=== PATIENT | male | born 1960 | race Caucasian/White ===

== ENCOUNTER → 2017-01-24 | Outpatient (CLI) | payer OTHER ==
[~2017-01-24] MED LIST: /ATOR40TA; ACET65TA; ADV500INH INH; ALBU17IN INH; AMLO5TAB2 PO; ASPI81TA85 PO; ATOR1TAB21 PO; BENT10CA PO; BREO1INH INH; ECOT325T5; IRBE300T12 PO; LIMBREL; LOSA100T36 PO; PROT1TAB2 PO; SALI0.653
[2017-01-24 08:55] LABS: MEAN CORPUSCULAR HEMOGLOBIN 31.7 pg (27.0-33.0); MEAN CORPUSCULAR HGB CONC 33.3 g/dl (32.0-36.5); MEAN CORPUSCULAR VOLUME 95.1 fl (80.0-96.0); RED CELL DISTRIBUTION WIDTH 12.2 % (11.5-14.5); WHITE BLOOD COUNT 7.4 K/mm3 (4.0-10.0)
[2017-01-24 09:24] LABS: INR 0.88
[2017-01-24 09:40] LABS: ALBUMIN 3.8 GM/DL (3.2-5.2); ALBUMIN/GLOBULIN RATIO 1.31 (1.00-1.93); ALKALINE PHOSPHATASE 84 U/L (45-117); ALT/SGPT 41 U/L (12-78); ANION GAP 7 MEQ/L (8-16); AST/SGOT 20 U/L (15-37); BILIRUBIN,TOTAL 0.6 MG/DL (0.2-1.0); BLOOD UREA NITROGEN 13 MG/DL (7-18); CALCIUM LEVEL 9.1 MG/DL (8.5-10.1); CARBON DIOXIDE LEVEL 29 MEQ/L (21-32); CHLORIDE LEVEL 100 MEQ/L (98-107); CHOLESTEROL LEVEL 199 MG/DL (<200); CREATININE FOR GFR 0.75 MG/DL (0.70-1.30); GLOMERULAR FILTRATION RATE > 60.0 (>56); GLUCOSE, FASTING 107 MG/DL (70-105); POTASSIUM SERUM 4.7 MEQ/L (3.5-5.1); SODIUM LEVEL 136 MEQ/L (136-145); TOTAL PROTEIN 6.7 GM/DL (6.4-8.2); TRIGLYCERIDES LEVEL 61 MG/DL (<150)
--- NOTE | 2017-01-24 13:03 | REP ---
Chest x-ray: Two views. History: COPD. Comparison chest x-ray July 10, 2016. Findings: The lungs are symmetrically aerated and clear. Heart is not enlarged. Pleural angles are sharp. Pulmonary vasculature is not increased. Impression: No active disease. Signed by Alexis Sotomayor MD 01/24/2017 01:25 P
--- NOTE | 2017-01-25 12:50 | ECGEPIP ---
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
== END ==
LOC: M LAB 08:15
PROVIDERS: ATTEND Family Medicine
DX: Z01.818 Encounter for other preprocedural examination (principal); I10 Essential (primary) hypertension; J44.9 Chronic obstructive pulmonary disease, unspecified

== ENCOUNTER → 2017-02-03 | Outpatient (CLI) | payer OTHER ==
[~2017-02-03] VITALS: Ht 182.9 cm; Wt 78.9 kg
[~2017-02-03] MED LIST changes: +LR 1,000 ML IV SCH
[2017-02-03 09:49] VITALS: BP 155/81
== END ==
LOC: EDSTATUS 07:30 → M SDC 09:01
PROVIDERS: ATTEND Otolaryngology
DX: Z53.09 Procedure and treatment not carried out because of other contraindication (principal); J34.2 Deviated nasal septum; J32.4 Chronic pansinusitis

== ENCOUNTER → 2017-05-05 | Outpatient (CLI) | payer OTHER ==
[~2017-05-05] MED LIST changes: -LR 1,000 ML IV SCH; +SALI0.6523; -SALI0.653
--- NOTE | 2017-05-06 03:47 | REP ---
Clinical: Lung screening. History of emphysema. Comparison: 12/19/2014 Technique: Axial low-dose noncontrast images from the thoracic inlet to the upper abdomen using lung screening technique. Findings: The lung rich again demonstrate stable, mild emphysematous changes including biapical scarring and few medial, subpleural bullae. The biapical scarring as well as a noncalcified pleural plaque along the posterior right upper lung zone remains unchanged. No consolidation, significant nodule or mass lesion is appreciated. No pleural effusion/reaction or pneumothorax. Tracheobronchial tree is patent. Mediastinum demonstrates moderate atherosclerotic changes of the coronary arteries without cardiomegaly. Impression: Lung-RADS category I-S. No nodule or suspicious abnormality. Signed by Valentin Deal MD 05/06/2017 03:38 A
== END ==
LOC: M RAD 11:02
PROVIDERS: ATTEND Internal Medicine Pulmonary Disease
DX: J43.2 Centrilobular emphysema (principal)

== ENCOUNTER → 2017-08-27 | Outpatient (CLI) | payer OTHER ==
[2017-08-27 12:57] LABS: MEAN CORPUSCULAR HEMOGLOBIN 33.8 pg (27.0-33.0); MEAN CORPUSCULAR HGB CONC 33.9 g/dl (32.0-36.5); MEAN CORPUSCULAR VOLUME 99.6 fl (80.0-96.0); PLATELET COUNT, AUTOMATED 245 10^3/uL (150-450); WHITE BLOOD COUNT 6.7 10^3/uL (4.0-10.0)
[2017-08-27 13:05] LABS: ALBUMIN/GLOBULIN RATIO 1.18 (1.00-1.93); ALKALINE PHOSPHATASE 93 U/L (45-117); ALT/SGPT 34 U/L (12-78); ANION GAP 7 MEQ/L (8-16); AST/SGOT 22 U/L (7-37); BILIRUBIN,TOTAL 1.3 MG/DL (0.2-1.0); BLOOD UREA NITROGEN 10 MG/DL (7-18); CARBON DIOXIDE LEVEL 30 MEQ/L (21-32); CHLORIDE LEVEL 98 MEQ/L (98-107); CHOLESTEROL LEVEL 189 MG/DL (<200); CREATININE FOR GFR 0.76 MG/DL (0.70-1.30); GLOMERULAR FILTRATION RATE > 60.0 (>56); GLUCOSE, FASTING 91 MG/DL (70-105); POTASSIUM SERUM 4.3 MEQ/L (3.5-5.1); SODIUM LEVEL 135 MEQ/L (136-145); TOTAL PROTEIN 7.4 GM/DL (6.4-8.2); TRIGLYCERIDES LEVEL 73 MG/DL (<150)
== END ==
LOC: M SMT 10:53
PROVIDERS: ATTEND Internal Medicine Cardiovascular Disease
DX: R07.9 Chest pain, unspecified (principal); I10 Essential (primary) hypertension; E78.5 Hyperlipidemia, unspecified

== ENCOUNTER → 2018-02-24 | Outpatient (CLI) | payer OTHER | LOC: M SMT 08:18 | DX: M25.551 Pain in right hip (principal) | CPT/HCPCS: 73502 ==

== ENCOUNTER → 2018-05-18 | Outpatient (CLI) | payer OTHER | LOC: M RAD 07:51 | DX: Z12.2 Encounter for screening for malignant neoplasm of respiratory organs (principal); F17.218 Nicotine dependence, cigarettes, with other nicotine-induced disorders | CPT/HCPCS: G0297 ==

== ENCOUNTER → 2018-10-01 | Outpatient (CLI) | payer OTHER ==
[~2018-10-01] MED LIST changes: -AMLO5TAB2 PO; +AMLO5TAB4 PO; +BISO5TAB5 PO; +CLOP75TA2 PO; +DICY10CA13 PO; +HYDR12.55 PO; +LISI2.5T5 PO; +LOSA-4 PO; -LOSA100T36 PO; +NITR0.4S14 SL; -SALI0.6523; +SALI0.6528; +VENTAER IN
[2018-10-01 09:03] LABS: HEMOGLOBIN 9.2 g/dl (13.5-17.5); MEAN CORPUSCULAR HEMOGLOBIN 28.9 pg (27.0-33.0); MEAN CORPUSCULAR HGB CONC 31.7 g/dl (32.0-36.5); MEAN CORPUSCULAR VOLUME 91.2 fl (80.0-96.0); PLATELET COUNT, AUTOMATED 345 10^3/uL (150-450); RED BLOOD COUNT 3.18 10^6/uL (4.30-6.10); WHITE BLOOD COUNT 5.7 10^3/uL (4.0-10.0)
[2018-10-01 09:22] LABS: INR 0.94; PROTHROMBIN TIME 12.7 SECONDS (12.1-14.4)
[2018-10-01 09:32] LABS: ALBUMIN 3.9 GM/DL (3.2-5.2); ALT/SGPT 21 U/L (12-78); BILIRUBIN,TOTAL 0.5 MG/DL (0.2-1.0); BLOOD UREA NITROGEN 12 MG/DL (7-18); CALCIUM LEVEL 8.9 MG/DL (8.8-10.2); CARBON DIOXIDE LEVEL 28 MEQ/L (21-32); CHLORIDE LEVEL 102 MEQ/L (98-107); CHOLESTEROL LEVEL 158 MG/DL (<200); CHOLESTEROL RISK RATIO 2.164 (<5); CREATININE FOR GFR 0.87 MG/DL (0.70-1.30); GLOMERULAR FILTRATION RATE > 60.0 (>49); GLUCOSE, FASTING 96 MG/DL (70-100); HDL CHOLESTEROL 73 MG/DL (>40); LDL CHOLESTEROL 72 MG/DL (<100); NON-HDL-C 85 MG/DL; POTASSIUM SERUM 4.3 MEQ/L (3.5-5.1); PROSTATIC SPECIFIC AG MONITOR 1.77 NG/ML (< 4.00); SODIUM LEVEL 137 MEQ/L (136-145); TOTAL PROTEIN 6.8 GM/DL (6.4-8.2); TRIGLYCERIDES LEVEL 64 MG/DL (<150)
--- NOTE | 2018-10-02 02:01 | REP ---
Clinical: Hypertension and history of COPD. Preoperative testing. Comparison: 07/10/2016, 01/24/2017 . Technique: PA and lateral. Findings: The mediastinum and cardiac silhouette are normal. The lung rich demonstrate changes related to COPD without acute consolidation, effusion, or pneumothorax. The skeletal structures are intact and normal. Impression: 1. Changes related to COPD. 2. No obvious acute cardiopulmonary process appreciated. Electronically Signed by Valentin Deal MD 10/02/2018 01:53 A
== END ==
LOC: M LAB 08:32
PROVIDERS: ATTEND Family Medicine
DX: Z01.818 Encounter for other preprocedural examination (principal); I10 Essential (primary) hypertension; J44.9 Chronic obstructive pulmonary disease, unspecified

== ENCOUNTER → 2018-11-02 | Outpatient (CLI) | payer OTHER ==
[~2018-11-02] MED LIST changes: -AMLO5TAB4 PO; +AMLO5TAB6 PO; +E-Z-GAS II EFFERVESCENT PACKET (SODIUM BICARB./CITRIC ACID/SIMETHICONE) As Ordered ONE; +E-Z-HD 98% w/w 340GM SUSP BTL As Ordered ONE; +E-Z-PAQUE 96% w/w SUSP 176GM BTL As Ordered ONE; -LOSA-4 PO; +LOSA100T50 PO
--- NOTE | 2018-11-02 12:29 | REP ---
Upper GI series: Single contrast study. History: Anemia, GI bleeding. Findings: Preliminary drone operator view of the abdomen is unremarkable. The thoracic esophagus is normal in coarse, caliber and peristalsis. Reflux was not witnessed. Gastric rugal folds are somewhat thickened question gastritis. No gastric mass or ulcer is seen. Duodenal bulb was fully distensible and clear. C-loop is not widened. Remainder the visualized small bowel is unremarkable. Fluoroscopy time with this examination was 0.3 minutes. Impression: Somewhat thickened gastric folds question gastritis. Otherwise negative. Electronically Signed by Alexis Sotomayor MD 11/02/2018 01:21 P
== END ==
LOC: M RAD 09:46
PROVIDERS: ATTEND Family Medicine
DX: D64.9 Anemia, unspecified (principal)

== ENCOUNTER → 2018-12-01 | Outpatient (CLI) | payer OTHER ==
[~2018-12-01] MED LIST changes: -E-Z-GAS II EFFERVESCENT PACKET (SODIUM BICARB./CITRIC ACID/SIMETHICONE) As Ordered ONE; -E-Z-HD 98% w/w 340GM SUSP BTL As Ordered ONE; -E-Z-PAQUE 96% w/w SUSP 176GM BTL As Ordered ONE; +SUCR1TAB56 PO
[2018-12-01 19:20] LABS: BASO # 0.1 10^3/uL (0.0-0.2); EOS # 0.4 10^3/uL (0.0-0.50); EOS % 5.3 % (0.0-3.0); HEMATOCRIT 27.7 % (42.0-52.0); HEMOGLOBIN 8.5 g/dl (13.5-17.5); LYMPH % 28.7 % (24.0-44.0); MEAN CORPUSCULAR HEMOGLOBIN 23.8 pg (27.0-33.0); MEAN CORPUSCULAR HGB CONC 30.7 g/dl (32.0-36.5); MEAN CORPUSCULAR VOLUME 77.6 fl (80.0-96.0); MONO # 0.9 10^3/uL (0.0-0.8); MONO % 12.9 % (0.0-5.0); NEUTROPHILS # 3.6 10^3/uL (1.8-7.7); NEUTROPHILS % 51.8 % (36.0-66.0); PLATELET COUNT, AUTOMATED 428 10^3/uL (150-450); RED BLOOD COUNT 3.57 10^6/uL (4.30-6.10)
== END ==
LOC: M SMT 13:12
PROVIDERS: ATTEND Internal Medicine Gastroenterology
DX: D64.9 Anemia, unspecified (principal)

== ENCOUNTER 2018-12-07 06:59 | Day surgery (SDC) | payer OTHER ==
[~2018-12-07] VITALS: Ht 177.8 cm; Wt 77.6 kg
[2018-12-07] MEDS ORDERED: NS 1,000 ML IV ONE (07:00)
[2018-12-07] MEDS ORDERED: PROPOFOL 200 MG/20 ML VIAL As Ordered ONE (07:12)
[2018-12-07] MEDS ORDERED: LIDOCAINE 2% INJ 100 MG/5 ML SDV (FOR ANES.) As Ordered ONE (07:12)
--- NOTE | 2018-12-07 10:00 | ROOR ---
Patient Name: Ashwin Villa Procedure Date: 12/07/2018 9:36 AM Date of : 1960 Age: 58 Room: [facility] Gender: Male Note Status: Finalized Procedure: Upper Endoscopy + Biopsies Indications: Iron deficiency anemia, Abnormal UGI series Providers: Dereje Dorman MD Referring MD: SHAVON DANIEL MD Requesting Provider: Medicines: Monitored Anesthesia Care Complications: No immediate complications. Procedure: Pre-Anesthesia Assessment: - The heart rate, respiratory rate, oxygen saturations, blood pressure, adequacy of pulmonary ventilation, and response to care were monitored throughout the procedure. The Endoscope was introduced through the mouth, and advanced to the second part of duodenum. The upper GI endoscopy was accomplished without difficulty. The patient tolerated the procedure well. Findings: The Z-line was irregular and was found 40 cm from the incisors. Multiple biopsies were obtained with cold forceps for evaluation to rule out Senior's Esophagus randomly at the gastroesophageal junction. A small hiatal hernia was present. No other significant abnormalities were identified in a careful examination of the stomach. The exam of the duodenum was otherwise normal. Impression: - Z-line irregular, 40 cm from the incisors. - Small hiatal hernia. - Multiple biopsies were obtained at the gastroesophageal junction. - The examination was otherwise normal. Recommendation: - Patient has a contact number available for emergencies. The signs and symptoms of potential delayed complications were discussed with the patient. Return to normal activities tomorrow. Written discharge instructions were provided to the patient. - High fiber diet. - Discharge patient to home. - Continue present medications. - Await pathology results. - Telephone GI clinic for pathology results in 1 week. - Return to referring physician. - The findings and recommendations were discussed with the patient's family. Dereje Dorman MD Dereje Dorman MD 12/07/2018 10:00:25 AM This report has been signed electronically. Number of Addenda: 0 Note Initiated On: 12/07/2018 9:36 AM Estimated Blood Loss: Estimated blood loss: none.
[2018-12-07 10:15] VITALS: BP 147/75
== END 2018-12-07 10:25 | disposition home or self-care (01) ==
LOC: M OPP 06:59
PROVIDERS: ATTEND Internal Medicine Gastroenterology
DX: D50.9 Iron deficiency anemia, unspecified (principal); K22.8 Other specified diseases of esophagus; K44.9 Diaphragmatic hernia without obstruction or gangrene; R93.3 Abnormal findings on diagnostic imaging of other parts of digestive tract; Z79.82 Long term (current) use of aspirin; Z79.899 Other long term (current) drug therapy; F17.210 Nicotine dependence, cigarettes, uncomplicated; Z95.5 Presence of coronary angioplasty implant and graft; Z86.73 Personal history of transient ischemic attack (TIA), and cerebral infarction without residual deficits

== ENCOUNTER → 2018-12-15 | Outpatient (REF) ==
--- NOTE | 2018-12-16 02:48 | REP ---
Clinical: Pain and disability. Technique: AP, lateral, open-mouth, and swimmer's views of the cervical spine. Findings: Straightening of normal lordosis is appreciated along with advanced degenerative disc osteophyte complex at C5-6 and C6-7 including endplate sclerosis/heterogeneity, disc space narrowing, and osteophytosis. Moderate disc space narrowing at C4-5 noted with minimal endplate sclerosis. No acute fracture / compression injury or subluxation. Spinous processes are intact. Impression: Moderate to advanced degenerative changes from C4-5 through C6-7. Electronically Signed by Valentin Deal MD 12/16/2018 02:40 A
== END ==
LOC: M SMT 12:58
PROVIDERS: ATTEND Internal Medicine
DX: Z02.89 Encounter for other administrative examinations (principal)

== ENCOUNTER → 2018-12-15 | Outpatient (CLI) | payer OTHER ==
[2018-12-15 18:27] LABS: HEMATOCRIT 29.5 % (42.0-52.0); HEMOGLOBIN 8.9 g/dl (13.5-17.5); MEAN CORPUSCULAR HEMOGLOBIN 22.9 pg (27.0-33.0); MEAN CORPUSCULAR HGB CONC 30.2 g/dl (32.0-36.5); MEAN CORPUSCULAR VOLUME 75.8 fl (80.0-96.0); PLATELET COUNT, AUTOMATED 446 10^3/uL (150-450); RED BLOOD COUNT 3.89 10^6/uL (4.30-6.10); WHITE BLOOD COUNT 7.6 10^3/uL (4.0-10.0)
== END ==
LOC: M SMT 12:56
PROVIDERS: ATTEND Family Medicine
DX: D64.9 Anemia, unspecified (principal); K92.2 Gastrointestinal hemorrhage, unspecified

== ENCOUNTER 2019-01-11 11:29 | Day surgery (SDC) | payer OTHER ==
[~2019-01-11] VITALS: Ht 177.8 cm; Wt 75.7 kg
[~2019-01-11 11:29] MED LIST changes: -/ATOR40TA; +IRON1TAB PO; +LIDOCAINE 2% INJ 100 MG/5 ML SDV (FOR ANES.) As Ordered ONE; +LIPI1TAB2; +LISI-1046 PO; -LISI2.5T5 PO; +NS 1,000 ML IV ONE; +PROPOFOL 200 MG/20 ML VIAL As Ordered ONE
[2019-01-11] MEDS ORDERED: PROPOFOL 200 MG/20 ML VIAL As Ordered ONE (13:39)
--- NOTE | 2019-01-11 14:00 | ROOR ---
Patient Name: Ashwin Villa Procedure Date: 01/11/2019 1:26 PM Date of : 1960 Age: 58 Room: [facility] Gender: Male Note Status: Finalized Procedure: Total Colonoscopy to Cecum + Cold Snare Polypectomy + Hemoclips Indications: Iron deficiency anemia Providers: Dereje Dorman MD Referring MD: SHAVON DANIEL MD Requesting Provider: Medicines: Monitored Anesthesia Care Complications: No immediate complications. Procedure: Pre-Anesthesia Assessment: - The heart rate, respiratory rate, oxygen saturations, blood pressure, adequacy of pulmonary ventilation, and response to care were monitored throughout the procedure. The Colonoscope was introduced through the anus and advanced to the cecum, identified by appendiceal orifice and ileocecal valve. The colonoscopy was performed without difficulty. The patient tolerated the procedure well. The quality of the bowel preparation was excellent. Findings: The perianal and digital rectal examinations were normal. Non-bleeding internal hemorrhoids were found during retroflexion. The hemorrhoids were small and Grade I (internal hemorrhoids that do not prolapse). A large polyp was found at 20 cm proximal to the anus. The polyp was carpet-like. The polyp was removed with a cold snare. Resection and retrieval were complete. To prevent bleeding after the polypectomy, three hemostatic clips were successfully placed (MR conditional). There was no bleeding at the end of the procedure. The exam was otherwise without abnormality on direct and retroflexion views. Impression: - Non-bleeding internal hemorrhoids. - One large polyp at 20 cm proximal to the anus, removed with a cold snare. Resected and retrieved. Clips (MR conditional) were placed. - The examination was otherwise normal on direct and retroflexion views. - The exam was otherwise normal to the cecum. Recommendation: - Patient has a contact number available for emergencies. The signs and symptoms of potential delayed complications were discussed with the patient. Return to normal activities tomorrow. Written discharge instructions were provided to the patient. - High fiber diet. - Discharge patient to home. - Continue present medications. - Await pathology results. - Telephone GI clinic for pathology results in 1 week. - Return to referring physician. - Repeat colonoscopy for surveillance based on pathology results. - Return to referring physician. - Check Portal Online for Path Results.([email or web address] - The findings and recommendations were discussed with the patient's family. Dereje Dorman MD Dereje Dorman MD 01/11/2019 2:00:05 PM Electronically signed by Dereje Dorman MD Number of Addenda: 0 Note Initiated On: 01/11/2019 1:26 PM Estimated Blood Loss: Estimated blood loss: none.
[2019-01-11 14:33] VITALS: BP 155/76
== END 2019-01-11 14:36 | disposition home or self-care (01) ==
LOC: M OPP 11:29
PROVIDERS: ATTEND Internal Medicine Gastroenterology
DX: D50.9 Iron deficiency anemia, unspecified (principal); D12.6 Benign neoplasm of colon, unspecified; K64.0 First degree hemorrhoids; I10 Essential (primary) hypertension; E78.00 Pure hypercholesterolemia, unspecified; R12 Heartburn; Z86.73 Personal history of transient ischemic attack (TIA), and cerebral infarction without residual deficits; J44.9 Chronic obstructive pulmonary disease, unspecified; Z95.5 Presence of coronary angioplasty implant and graft; F17.210 Nicotine dependence, cigarettes, uncomplicated; Z79.899 Other long term (current) drug therapy

== ENCOUNTER → 2019-02-10 | Outpatient (CLI) | payer OTHER ==
[~2019-02-10] MED LIST changes: -LIDOCAINE 2% INJ 100 MG/5 ML SDV (FOR ANES.) As Ordered ONE; -NS 1,000 ML IV ONE; -PROPOFOL 200 MG/20 ML VIAL As Ordered ONE
[2019-02-10 07:11] LABS: HEMATOCRIT 41.1 % (42.0-52.0); HEMOGLOBIN 13.1 g/dl (13.5-17.5); MEAN CORPUSCULAR HEMOGLOBIN 28.1 pg (27.0-33.0); MEAN CORPUSCULAR HGB CONC 31.9 g/dl (32.0-36.5); PLATELET COUNT, AUTOMATED 276 10^3/uL (150-450); RED BLOOD COUNT 4.67 10^6/uL (4.30-6.10); WHITE BLOOD COUNT 6.8 10^3/uL (4.0-10.0)
[2019-02-10 07:38] LABS: ALBUMIN 3.9 GM/DL (3.2-5.2); ALT/SGPT 28 U/L (12-78); BILIRUBIN,TOTAL 0.3 MG/DL (0.2-1.0); BLOOD UREA NITROGEN 11 MG/DL (7-18); CALCIUM LEVEL 8.7 MG/DL (8.8-10.2); CARBON DIOXIDE LEVEL 29 MEQ/L (21-32); CHLORIDE LEVEL 106 MEQ/L (98-107); CHOLESTEROL LEVEL 149 MG/DL (<200); CHOLESTEROL RISK RATIO 2.098 (<5); CREATININE FOR GFR 0.98 MG/DL (0.70-1.30); GLOMERULAR FILTRATION RATE > 60.0 (>49); GLUCOSE, FASTING 93 MG/DL (70-100); HDL CHOLESTEROL 71 MG/DL (>40); IRON (FE) 79 UG/DL (65-175); LDL CHOLESTEROL 68 MG/DL (<100); NON-HDL-C 78 MG/DL; PERCENT SATURATION 25.7 % (19.7-50.0); POTASSIUM SERUM 4.2 MEQ/L (3.5-5.1); PROSTATIC SPECIFIC AG MONITOR 1.02 NG/ML (< 4.00); SODIUM LEVEL 141 MEQ/L (136-145); TOTAL IRON BINDING CAPACITY 307 UG/DL (250-450); TOTAL PROTEIN 6.7 GM/DL (6.4-8.2); TRIGLYCERIDES LEVEL 52 MG/DL (<150)
[2019-02-10 10:49] LABS: TESTOSTERONE 392 NG/DL (241-827)
== END ==
LOC: M LAB 06:25
PROVIDERS: ATTEND Family Medicine
DX: I10 Essential (primary) hypertension (principal); R53.83 Other fatigue; R97.20 Elevated prostate specific antigen [PSA]

== ENCOUNTER → 2019-05-20 | Outpatient (CLI) | payer OTHER ==
[~2019-05-20] MED LIST changes: +BISO5TAB14 PO; -BISO5TAB5 PO; +PERC5TAB12 PO; +PLAV1TAB2 PO; +RA S0.65; +SLOW142T5 PO; +XARE10TA PO
[2019-05-20 07:01] LABS: HEMATOCRIT 42.4 % (42.0-52.0); HEMOGLOBIN 14.1 g/dl (13.5-17.5); MEAN CORPUSCULAR HEMOGLOBIN 33.9 pg (27.0-33.0); MEAN CORPUSCULAR HGB CONC 33.3 g/dl (32.0-36.5); MEAN CORPUSCULAR VOLUME 101.9 fl (80.0-96.0); PLATELET COUNT, AUTOMATED 276 10^3/uL (150-450); RED BLOOD COUNT 4.16 10^6/uL (4.30-6.10); WHITE BLOOD COUNT 5.7 10^3/uL (4.0-10.0)
--- NOTE | 2019-05-20 07:11 | REP ---
Clinical: Preoperative assessment . Comparison: 10/01/2018 . Technique: PA and lateral. Findings: The mediastinum and cardiac silhouette are normal. The lung rich are clear and without acute consolidation, effusion, or pneumothorax. The skeletal structures are intact and normal. Impression: 1. No acute cardiopulmonary process. Electronically Signed by Valentin Deal MD 05/20/2019 07:02 A
[2019-05-20 07:20] LABS: INR 0.91
[2019-05-20 07:22] LABS: ERYTHROCYTE SEDIMENTATION RATE 3 mm/hr (0-20)
[2019-05-20 07:24] LABS: ALBUMIN 3.9 GM/DL (3.2-5.2); ALT/SGPT 30 U/L (12-78); BILIRUBIN,TOTAL 0.5 MG/DL (0.2-1.0); BLOOD UREA NITROGEN 10 MG/DL (7-18); CARBON DIOXIDE LEVEL 28 MEQ/L (21-32); CHLORIDE LEVEL 105 MEQ/L (98-107); CREATININE FOR GFR 0.74 MG/DL (0.70-1.30); GLOMERULAR FILTRATION RATE > 60.0 (>49); GLUCOSE, FASTING 93 MG/DL (70-100); POTASSIUM SERUM 4.2 MEQ/L (3.5-5.1); SODIUM LEVEL 139 MEQ/L (136-145); TOTAL PROTEIN 6.9 GM/DL (6.4-8.2)
--- NOTE | 2019-05-20 08:46 | ECGEPIP ---
[facility] Test Date: 2019-05-20 Pat Name: RICA MOLINA Department: Room: - Gender: Male Manager Copy: RF : 1960 Requested By: Justo Jefferson Order Number: [id number] Reading MD: Edmundo Houser Measurements Intervals [place] Rate: 55 P: 14 SD: 247 QRS: -59 QRSD: 110 T: 55 QT: 420 QTc: 404 Interpretive Statements Sinus bradycardia with first degree AV block Left axis deviation No significant change when compared to prior tracing of 01/24/2017 Electronically Signed on 05-20-2019 8:46:22 EDT by Edmundo Houser
== END ==
LOC: M LAB 06:12
PROVIDERS: ATTEND Orthopaedic Surgery
DX: Z01.818 Encounter for other preprocedural examination (principal); M16.11 Unilateral primary osteoarthritis, right hip

== ENCOUNTER 2019-05-25 07:05 | Outpatient (RCR) | payer OTHER ==
[~2019-05-25 07:05] MED LIST changes: -BISO5TAB14 PO; +BISO5TAB5 PO; -PERC5TAB12 PO; -XARE10TA PO
== END 2019-06-12 ==
LOC: M PT 07:05
PROVIDERS: ATTEND Orthopaedic Surgery
DX: Z47.89 Encounter for other orthopedic aftercare (principal); M16.11 Unilateral primary osteoarthritis, right hip

== ENCOUNTER → 2019-06-02 | Outpatient (CLI) | payer OTHER ==
--- NOTE | 2019-06-02 09:08 | REP ---
REASON: Tobacco abuse. COMPARISON: 05/18/2018 As per the protocol, only lung the window images were sent to the read station for interpretation. No new abnormal nodules, masses, or opacities have developed. There is stable biapical pleuroparenchymal scarring with pleural thickening in the right lung apical region posteriorly. Grossly, the mediastinum and pulmonary chris are unchanged. Grossly, the imaged upper abdomen and imaged osseous structures are unchanged. IMPRESSION: No change from the prior exam. Lung-RADS category 1. Electronically Signed by Bam Lockett DO 06/02/2019 12:36 P
== END ==
LOC: M RAD 07:31
PROVIDERS: ATTEND Physician Assistant
DX: Z12.2 Encounter for screening for malignant neoplasm of respiratory organs (principal); F17.210 Nicotine dependence, cigarettes, uncomplicated

== ENCOUNTER 2019-08-16 10:30 | Inpatient (IN) | payer OTHER ==
[~2019-08-16] VITALS: Ht 180.3 cm; Wt 71.7 kg
[~2019-08-16 10:30] MED LIST changes: -BISO5TAB5 PO; +BISO5TAB9 PO
--- NOTE | 2019-10-07 10:08 | HPE ---
DATE OF ADMISSION: 10/11/2019 HISTORY OF PRESENT ILLNESS: This is a pleasant 59-year-old male who has had some road blocks in pursuit of right total hip arthroplasty. Apparently he had some anemia and also cardiac stents. At this time, he has been medically optimized by Dr. Ortiz and his primary care provider, Dr. Carpio. I have documentation from Dr. Ortiz, but still awaiting Dr. Carpio's note. MRI evidence shows bilateral avascular necrosis (AVN) about the hips. The patient continues to smoke a pack of cigarettes a day. He is consented for a right total hip arthroplasty per Dr. Justo Nichole. ALLERGIES: No allergies known to drugs. MEDICATIONS: List includes: - Ventolin HFA 108 (90 base) mcg/ACT AERS - atorvastatin 20 mg by mouth daily - bisoprolol 0.5 tablets 2.5 mg total by mouth daily - clopidogrel 1 tablet 75 mg by mouth daily - dicyclomine 10 mg by mouth four times a day as needed - ferrous sulfate dried extended release 143 (45 FE) mg TBCR takes 2 tablets by mouth every other day - fluticasone inhale 1 puff daily - hydrochlorothiazide 12.5 mg capsule by mouth daily - lisinopril 0.5 tablet by mouth two times a day - nitroglycerin place 1 tablet (0.4 25 tablet mg total) under the tongue every 5 minutes as needed for chest pain - pantoprazole take 40 mg by mouth daily - sildenafil 100 mg by mouth two times a day as needed MEDICAL PROBLEM LIST: Includes: Bilateral hip osteoarthritis, avascular necrosis. Coronary artery disease. Benign essential hypertension. Hyperlipidemia. Gastroesophageal reflux disease. Chronic obstructive pulmonary disease. Tobacco user. Abnormal results of other cardiovascular function study (see ODE). Arthritis. Ascending aorta dilation. Personal history of transient ischemic attack, and cerebral infarction without residual deficits. Drug-induced erectile dysfunction. SOCIAL HISTORY: He is a current smoker, a pack a day. Consumes three cans of beer per week. Denies illicit drugs. PAST SURGICAL HISTORY: Includes: Cardiac catheterization 10/23/2017 with angioplasty. Also coronary stent placement. Colonoscopy. Endoscopy. FAMILY HISTORY: Positive for myocardial infarction. REVIEW OF SYSTEMS: He denies chest pain, shortness of breath, dyspnea on exertion, fever, chills, malaise, upper respiratory or urinary tract symptoms. Medical clearance was reviewed for both Dr. Carpio and Dr. Juan R Ortiz. Chest x-ray service date 09/29/2019, [facility], shows no acute disease. Labs without gross abnormality, although MCV was 100, MCH was 33.1, anion gap 7, bilirubin 1.2. EKG sinus rhythm with first-degree AV block, left axis deviation, inferior Q-waves of uncertain significance. Similar to tracing done 05/20/2019 but with increased rate as read by Dr. Pete Philippe. PHYSICAL EXAMINATION: Blood pressure 135/75, pulse 65, temperature 96.9, height 70, weight 160 pounds, 8 ounces. BMI 23.0, respiration 17. This is a pleasant well-developed, well-nourished 59-year-old male, alert to time and place. He is in no acute distress. He is ambulating with favoring about his left lower extremity. Right hip range of motion is limited and irritable throughout range. Normocephalic. Neck supple. Negative jugular venous distention (JVD) or bruits. Lungs clear to auscultation. Chest no murmurs, gallops, rubs. Soft, nontender, sounds x4. Lower extremities: Skin is intact, benign, noninfectious looking. IMPRESSION: 1. Symptomatic right hip osteoarthritis. 2. Patient consented for right total hip arthroplasty per Dr. Justo Nichole. 3. Medical optimization per primary care Dr. 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 Juan R Ortiz. 4. On-call to OR 1 gram IV Kefzol in OR. 5. Sequential compression devices (SCD) and thromboembolic deterrent stockings (TEDS) in OR.
[2019-10-11] VITALS (7 sets, daily range): BP systolic 139–169; BP diastolic 65–78
[2019-10-11] MEDS ORDERED: LR 1,000 ML IV ONE (07:00)
[2019-10-11] MEDS ORDERED: ceFAZolin SOD 2 GM in IV 1 EA IV ONE (07:00)
[2019-10-11] MEDS ORDERED: TRANEXAMIC ACID 100 MG/ML 10ML VIAL As Ordered ONE (07:08)
[2019-10-11] MEDS ORDERED: ceFAZolin 1GM INJ (J0690 PER 500MG) As Ordered ONE (07:08)
[2019-10-11] MEDS ORDERED: BUPIVACAINE/EPIN 0.25% 30 ML VIAL As Ordered ONE (07:08)
[2019-10-11] MEDS ORDERED: BUPIVACAINE HCL 0.5% 10 ML VIAL As Ordered ONE (07:08)
[2019-10-11] MEDS ORDERED: PROPOFOL 500 MG/50 ML VIAL As Ordered ONE (07:09)
[2019-10-11] MEDS ORDERED: EPINEPHrine INJ 1 MG/ML 1ML VIAL As Ordered ONE (07:09)
[2019-10-11] MEDS ORDERED: BUPIVACAINE LIPOSOME/PF 1.3% 20ML VIAL (13.3MG/ML)(EXPAREL)(C9290 PER1MG) As Ordered ONE (07:09)
[2019-10-11] MEDS ORDERED: ONDANSETRON 4MG/2ML VIAL (J2405) As Ordered ONE (07:09)
[2019-10-11] MEDS ORDERED: MIDAZOLAM INJ 2 MG/2 ML VIAL (J2250) As Ordered ONE (07:09)
[2019-10-11] MEDS ORDERED: LIDOCAINE 2% INJ 100 MG/5 ML SDV (FOR ANES.) As Ordered ONE (07:09)
[2019-10-11] MEDS ORDERED: fentaNYL 100 MCG/2 ML INJECTION (J3010) As Ordered ONE (08:11)
[2019-10-11] MEDS ORDERED: ACETAMINOPHEN 1000MG 100ML IV BTL (OFIRMEV) (J0131 PER 10MG) As Ordered ONE (08:31)
[2019-10-11] MEDS ORDERED: MORPHINE 15 MG SA TAB PO PRN (09:00)
[2019-10-11] MEDS ORDERED: PROPOFOL 200 MG/20 ML VIAL As Ordered ONE ×4 (09:03→10:09)
[2019-10-11] MEDS ORDERED: ONDANSETRON 4MG/2ML VIAL (J2405) IV PRN (11:00)
[2019-10-11] MEDS ORDERED: fentaNYL 100 MCG/2 ML INJECTION (J3010) IV PRN (11:00)
[2019-10-11] MEDS ORDERED: PERCOCET 5MG/325MG TAB PO PRN ×2 (11:00→12:00)
[2019-10-11] MEDS ORDERED: LR 1,000 ML IV SCH (11:00)
[2019-10-11] MEDS ORDERED: MORPHINE 2 MG/ML 1ML VIAL (J2270) IV PRN (11:00)
--- NOTE | 2019-10-11 11:15 | REP ---
Two views right hip: 2018. Indication: Postoperative assessment. Comparison: 02/24/2018. Findings: The patient is immediately status post right hip total arthroplasty. There are no acute fractures. The hardware is intact and a properly positioned. Impression: Expected post procedural right hip findings. Electronically Signed by Sukhi Ramirez DO 10/11/2019 11:06 A
[2019-10-11] MEDS ORDERED: PHENYLephrine HCL 500 MCG/5 ML (100MCG/ML) SYRINGE (J2370) As Ordered ONE (11:35)
[2019-10-11] MEDS ORDERED: ePHEDrine SULFATE 25 MG/5 ML(5MG/ML) SYRINGE As Ordered ONE (11:35)
[2019-10-11] MEDS: HYDROMORPHONE HCL 0.5 MG/ 0.5 ML SYRINGE (J1170 PER 1) IV PRN ×3 (11:39→22:40)
[2019-10-11] MEDS: LR 1,000 ML IV SCH ×2 (11:54→17:30)
[2019-10-11] MEDS ORDERED: ACETAMINOPHEN TAB 650MG DOSE (2X325MG) PO PRN (12:00)
[2019-10-11] MEDS ORDERED: FLEET ENEMA PR PRN (12:00)
[2019-10-11] MEDS ORDERED: HYDROMORPHONE HCL 0.5 MG/ 0.5 ML SYRINGE (J1170 PER 1) IV PRN (12:00)
[2019-10-11] MEDS ORDERED: PROMETHAZINE INJ 25 MG/ML VIAL (J2550) IV PRN (12:00)
[2019-10-11] MEDS: PERCOCET 5MG/325MG TAB PO PRN ×3 (12:00→21:05)
--- NOTE | 2019-10-11 14:27 | CR ---
DATE OF CONSULTATION: 10/11/2019 CONSULTATION FOR: [facility] PRIMARY CARE PROVIDER: Dr. Antoni Carpio This medical evaluation on Ashwin Villa seen on 5 rodríguez postoperatively, I believe, had a right total hip arthroplasty. He had a preoperative evaluation by Dr. Ortiz cardiology on 09/29/2019, and this was evaluated. The patient has a history of coronary artery disease. He had a drug-eluting stent of the right coronary artery (RCA) on 10/23/2017. He is on clopidogrel as a single-agent antiplatelet therapy at this time. He has a history of hypertensive heart disease, hyperlipidemia, cerebrovascular disease, smoking, gastroesophageal reflux disease (GERD). Other past history shows ascending aortic dilation, history of drug-induced erectile dysfunction, smoking-related chronic obstructive pulmonary disease (COPD). OUTPATIENT MEDICATIONS: - albuterol inhaler - atorvastatin 20 mg daily - bisoprolol 2.5 mg daily - Plavix 75 mg daily - Bentyl 10 mg four times a day as needed - ferrous sulfate ER 143 mg two tablets every other day - Breo Ellipta 100/25 one inhalation daily - hydrochlorothiazide 12.5 mg daily - lisinopril 5 mg, 1/2 tablet (2.5 mg) twice a day - Nitrostat as needed - Protonix 40 mg daily - Viagra as needed ALLERGIES: None known. SOCIAL HISTORY: Smokes a pack a day. . Three drinks of alcohol per day. REVIEW OF SYSTEMS: No chest pain, shortness of breath, cough, wheeze, hemoptysis. PHYSICAL EXAMINATION: Vital signs per flow sheet. General appearance: Alert, conversant, no distress. HEENT: Unremarkable. Lungs clear. Heart: Regular rate and rhythm without murmur. Abdomen: Soft, nontender, no masses. No peripheral edema. IMPRESSION: 1. Coronary artery disease. Restart Plavix 75 mg daily and bisoprolol 2.5 mg daily. 2. Hyperlipidemia. Continue atorvastatin 20 mg daily. 3. Hypertensive heart disease. Hold his hydrochlorothiazide in postoperative period. Restart lisinopril 2.5 mg daily. 4. Smoking-induced chronic obstructive pulmonary disease. He has bronchodilator already ordered. He might need a nicotine substitution patch. 5. Moderate alcohol intake. Observe for signs and symptoms of alcohol withdrawal. Alcohol intake is the high end of moderate. Three alcoholic drinks daily. 6. Gastroesophageal reflux disease. Continue Protonix 40 mg daily.
[2019-10-11] MEDS: ATORVASTATIN 20 MG TAB PO SCH (15:00)
[2019-10-11] MEDS: LISINOPRIL *2.5 MG* TAB PO SCH ×2 (15:01→21:11)
[2019-10-11] MEDS: ceFAZolin SOD 2 GM in IV 1 EA IV SCH (16:08)
[2019-10-12] VITALS: BP 154/72
[2019-10-12] MEDS: ceFAZolin SOD 2 GM in IV 1 EA IV SCH (00:41)
[2019-10-12] MEDS: PERCOCET 5MG/325MG TAB PO PRN ×6 (01:28→21:49)
[2019-10-12 04:00] VITALS: BP 149/75
[2019-10-12] MEDS ORDERED: PERC5TAB12 PO (06:27)
[2019-10-12 07:02] LABS: HEMOGLOBIN 10.4 g/dl (13.5-17.5); MEAN CORPUSCULAR HEMOGLOBIN 33.8 pg (27.0-33.0); MEAN CORPUSCULAR HGB CONC 33.5 g/dl (32.0-36.5); MEAN CORPUSCULAR VOLUME 100.6 fl (80.0-96.0); PLATELET COUNT, AUTOMATED 189 10^3/uL (150-450); RED BLOOD COUNT 3.08 10^6/uL (4.30-6.10); WHITE BLOOD COUNT 7.4 10^3/uL (4.0-10.0)
[2019-10-12 07:24] LABS: BLOOD UREA NITROGEN 8 MG/DL (7-18); CALCIUM LEVEL 8.2 MG/DL (8.8-10.2); CARBON DIOXIDE LEVEL 24 MEQ/L (21-32); CHLORIDE LEVEL 104 MEQ/L (98-107); CREATININE FOR GFR 0.67 MG/DL (0.70-1.30); GLOMERULAR FILTRATION RATE > 60.0 (>49); GLUCOSE, FASTING 105 MG/DL (70-100); POTASSIUM SERUM 3.6 MEQ/L (3.5-5.1); SODIUM LEVEL 137 MEQ/L (136-145)
[2019-10-12 08:00] VITALS: BP 133/62
[2019-10-12] MEDS ORDERED: XARE10TA PO (08:32)
--- NOTE | 2019-10-12 08:38 | IPN ---
DATE: 10/12/2019 Ashwin is seen on [place]. He is postoperative right hip arthroplasty, history of coronary artery disease with drug eluting stent to the right coronary artery 10/2017, on Plavix for antiplatelet therapy. He is having some significant postoperative pain, he is not sure if he is going to be ready to go home today. Medically, he is stable. His blood pressure is under fairly good control, it is a little elevated at 149/75 but he is in pain from his surgery. His hydrochlorothiazide had been held postoperatively until we saw where his blood pressure was going, so we are restarting that today. He denies chest pain or shortness of breath. PHYSICAL EXAMINATION: VITAL SIGNS: Stable. 149/75. GENERAL APPEARANCE: Alert conversant, no distress. LUNGS: Clear. HEART: Regular rhythm. ABDOMEN: Soft, nontender. NEUROLOGIC: Nonfocal. LABORATORIES: Electrolytes unremarkable. Hemoglobin 10.4. IMPRESSION: 1. Coronary artery disease. The patient is on Plavix 75 mg daily. I spoke with Dr. Ortiz from [facility] who did his preoperative cardiac clearance, about being on both Plavix for his stents and Xarelto for deep vein thrombosis (DVT) prophylaxis. Dr. Ortiz would like him to maintain the Plavix 75 mg daily in addition to the Xarelto. I spoke with Debbie Houser from [facility], who is aware of this recommendation. I spoke with the patient and he is aware of increased bleeding risk and will take appropriate precautions. 2. Hypertensive heart disease. Continue Lisinopril 2.5 mg twice a day, bisoprolol 2.5 mg daily and restart hydrochlorothiazide 12.5 mg daily. 3. Hyperlipidemia. Continue his atorvastatin. 4. Smoking induced chronic obstructive pulmonary disease (COPD). Continue bronchodilator treatment.
[2019-10-12] MEDS ORDERED: ALBUTEROL 90 MCG/ACT 8GM HFA INHALER INH PRN (09:00)
[2019-10-12] MEDS ORDERED: NITROGLYCERIN 0.4 MG SUBL TABLET SL PRN (09:00)
[2019-10-12] MEDS ORDERED: hydroCHLOROthiazide 12.5 MG CAPSULE PO SCH (09:00)
[2019-10-12] MEDS: FLUTICASONE PROP 0.05% NASAL SPRAY 16 GM (FLONASE) NARES SCH (09:00)
[2019-10-12] MEDS: CLOPIDOGREL 75 MG TAB PO SCH (09:39)
[2019-10-12] MEDS: hydroCHLOROthiazide 12.5 MG CAPSULE PO SCH (09:40)
[2019-10-12] MEDS: PANTOPRAZOLE 40MG TAB (PROTONIX) PO SCH (09:40)
[2019-10-12] MEDS: ATORVASTATIN 20 MG TAB PO SCH (09:41)
[2019-10-12] MEDS: LISINOPRIL *2.5 MG* TAB PO SCH ×2 (09:42→21:00)
[2019-10-12] MEDS: MORPHINE 15 MG SA TAB PO SCH ×2 (09:43→20:48)
[2019-10-12] MEDS: BISOPROLOL FUM 2.5 MG PER 1/2TAB PO SCH (09:43)
[2019-10-12] MEDS: METAMUCIL (PSYLLIUM) PACKET PO SCH ×2 (09:44→20:48)
[2019-10-12] MEDS: MIRALAX *UNIT DOSE* 17GM PACKET PO SCH (09:44)
[2019-10-12 14:00] VITALS: BP 106/61
[2019-10-12] MEDS ORDERED: RIVAROXABAN 10 MG TAB (XARELTO) PO SCH (18:00)
[2019-10-12 20:45] VITALS: BP 107/61
[2019-10-12 20:49] VITALS: BP 107/61
[2019-10-13] MEDS: PERCOCET 5MG/325MG TAB PO PRN (03:36)
[2019-10-13 06:00] VITALS: BP 111/58
[2019-10-13 07:23] LABS: HEMATOCRIT 30.9 % (42.0-52.0); HEMOGLOBIN 10.1 g/dl (13.5-17.5); MEAN CORPUSCULAR HGB CONC 32.7 g/dl (32.0-36.5); PLATELET COUNT, AUTOMATED 178 10^3/uL (150-450); RED BLOOD COUNT 3.06 10^6/uL (4.30-6.10); WHITE BLOOD COUNT 9.6 10^3/uL (4.0-10.0)
[2019-10-13 07:47] LABS: BLOOD UREA NITROGEN 10 MG/DL (7-18); CALCIUM LEVEL 8.3 MG/DL (8.8-10.2); CARBON DIOXIDE LEVEL 25 MEQ/L (21-32); CHLORIDE LEVEL 100 MEQ/L (98-107); CREATININE FOR GFR 0.67 MG/DL (0.70-1.30); GLOMERULAR FILTRATION RATE > 60.0 (>49); GLUCOSE, FASTING 83 MG/DL (70-100); POTASSIUM SERUM 3.6 MEQ/L (3.5-5.1); SODIUM LEVEL 135 MEQ/L (136-145)
[2019-10-13] MEDS: BISOPROLOL FUM 2.5 MG PER 1/2TAB PO SCH (08:36)
[2019-10-13 08:38] VITALS: BP 112/71
[2019-10-13] MEDS: LISINOPRIL *2.5 MG* TAB PO SCH (08:38)
[2019-10-13] MEDS: CLOPIDOGREL 75 MG TAB PO SCH (08:39)
[2019-10-13] MEDS: ATORVASTATIN 20 MG TAB PO SCH (08:39)
[2019-10-13] MEDS: hydroCHLOROthiazide 12.5 MG CAPSULE PO SCH (08:39)
[2019-10-13] MEDS: PANTOPRAZOLE 40MG TAB (PROTONIX) PO SCH (08:39)
[2019-10-13] MEDS: MORPHINE 15 MG SA TAB PO SCH (08:39)
[2019-10-13] MEDS: MIRALAX *UNIT DOSE* 17GM PACKET PO SCH (08:40)
[2019-10-13] MEDS: METAMUCIL (PSYLLIUM) PACKET PO SCH (08:40)
[2019-10-13] MEDS: FLUTICASONE PROP 0.05% NASAL SPRAY 16 GM (FLONASE) NARES SCH (09:00)
--- NOTE | 2019-10-13 18:52 | IPNPDOC ---
Text Note Date of Service The patient was seen on 10/13/19. NOTE Subjective: -Feels well this AM, passed PT, looking forward to going home. -Was on phone ordering breakfast when I came into the room -Expressed understanding that he will have to take extra cation while on plavix/xarelto as instructed by Dr. Ortiz PHYSICAL EXAMINATION: Vital signs : see below General appearance: Alert, conversant, no distress, sitting up in bed. HEENT: NCAT, PERRLA, EOMI, MMM Lungs: CTAB Heart: Regular rate and rhythm without murmur. Abdomen: Soft, nontender, no masses. Extremities: No peripheral edema, WWP, good DP pulses Labs: reviewed. Stable. IMPRESSION: 59 yo man post R hip surgery whom medicine was consulted for management of his chronic conditions, without any apparent complications, now being discharged home by orthopedic surgery. 1. Coronary artery disease. -Plavix 75 mg daily and bisoprolol 2.5 mg daily. 2. Hyperlipidemia. -Continue atorvastatin 20 mg daily. 3. Hypertensive heart disease. -Was restarted on home HCTZ and lisinopril 4. COPD. -continue home inhalers, stable. 5. Moderate alcohol intake. -No signs of withdrawal 6. Gastroesophageal reflux disease. -Continue Protonix 40 mg daily. Dispo: Home, as he was cleared by PT on xarelto post op DVT ppx. VS,Fishbone, I+O VS, Fishbone, I+O Laboratory Tests 10/13/19 06:39 Vital Signs Date Time Temp Pulse Resp B/P (MAP) Pulse Ox O2 Delivery O2 Flow Rate FiO2 10/13/19 10:03 18 Room Air 10/13/19 08:38 112/71 10/13/19 08:36 81 10/13/19 06:00 99.0 97 I&O- Last 24 Hours up to 6 AM 10/13/19 06:00 Intake Total 2240 ml Output Total 2615 ml Balance -375 ml ARI COTA MD Oct 13, 2019 18:52
--- NOTE | 2019-10-15 17:03 | DSES ---
DATE OF ADMISSION: 10/11/2019 DATE OF DISCHARGE: 10/13/2019 ATTENDING PHYSICIAN: Dr. Justo Nichole ADMISSION DIAGNOSIS: Right hip osteoarthritis. OTHER DIAGNOSES: Avascular necrosis. Coronary artery disease. Hypertension. Hyperlipidemia. Gastroesophageal reflux disease (GERD). Chronic obstructive pulmonary disease (COPD). Tobacco use. Arthritis. Ascending aorta dilation. History of transient ischemic attack (TIA) and cerebral infarct. Drug-induced erectile dysfunction. DISCHARGE DIAGNOSIS: Right hip osteoarthritis, status post right total hip arthroplasty. OPERATION PERFORMED: Right total hip arthroplasty. HISTORY: This is a 59-year-old male patient with progressively worsening right hip pain and stiffness. He failed to improve with conservative management and was admitted for elective hip replacement on the right side. HOSPITAL COURSE: The patient was admitted on the day of surgery and underwent a right total hip arthroplasty which was uneventful. He did well in the postoperative period and hospital course was without complications. He was up with physical therapy per their protocol, weightbearing as tolerated on the right lower extremity. He will follow deep vein thrombosis (DVT) prophylaxis per protocol and resume his preoperative medications and diet along with oral pain medication for pain control. He was given instructions to include but not limited to wound monitoring and activity limitations. He will followup in our office in 10-14 days for surgical followup. Please refer to the medical record for further details
== END 2019-10-13 09:45 | disposition home or self-care (01) | DRG 301 ==
LOC: M OR 10-11 05:29 → M MS5PR 10-11 11:15
PROVIDERS: ADMIT Orthopaedic Surgery; ATTEND Orthopaedic Surgery
PROC: 0SR902A Replacement of Right Hip Joint with Metal on Polyethylene Synthetic Substitute, Uncemented, Open Approach (ICD-10-PCS; principal; 2019-10-11 07:30)
DX: M16.11 Unilateral primary osteoarthritis, right hip (principal); I11.9 Hypertensive heart disease without heart failure; Z79.899 Other long term (current) drug therapy; I25.10 Atherosclerotic heart disease of native coronary artery without angina pectoris; E78.5 Hyperlipidemia, unspecified; K21.9 Gastro-esophageal reflux disease without esophagitis; J44.9 Chronic obstructive pulmonary disease, unspecified; F17.200 Nicotine dependence, unspecified, uncomplicated; Z86.73 Personal history of transient ischemic attack (TIA), and cerebral infarction without residual deficits; I44.0 Atrioventricular block, first degree; N52.2 Drug-induced erectile dysfunction

== ENCOUNTER → 2019-09-29 | Outpatient (CLI) | payer OTHER ==
[2019-09-29 07:27] LABS: HEMATOCRIT 43.5 % (42.0-52.0); HEMOGLOBIN 14.4 g/dl (13.5-17.5); MEAN CORPUSCULAR HEMOGLOBIN 33.1 pg (27.0-33.0); MEAN CORPUSCULAR HGB CONC 33.1 g/dl (32.0-36.5); PLATELET COUNT, AUTOMATED 291 10^3/uL (150-450); RED BLOOD COUNT 4.35 10^6/uL (4.30-6.10); WHITE BLOOD COUNT 6.3 10^3/uL (4.0-10.0)
[2019-09-29 07:36] LABS: INR 0.92; PROTHROMBIN TIME 12.1 SECONDS (11.8-14.0)
--- NOTE | 2019-09-29 08:04 | REP ---
Chest x-ray: Two views. History: Hypertension, COPD. Comparison chest x-ray: May 20, 2019. Findings: The lungs are slightly hyperinflated but free of infiltrate. Pleural angles are sharp. Heart size is normal. There is a calcification projecting over the anterior heart border on the lateral radiograph which may be coronary artery vascular calcification. In any event, it is unchanged. Pulmonary vasculature is not increased. No significant bony abnormality. Impression: No acute disease. Electronically Signed by Alexis Sotomayor MD 09/29/2019 07:56 A
[2019-09-29 08:05] LABS: ALBUMIN 3.9 GM/DL (3.2-5.2); ALT/SGPT 36 U/L (12-78); BILIRUBIN,TOTAL 1.2 MG/DL (0.2-1.0); BLOOD UREA NITROGEN 9 MG/DL (7-18); CALCIUM LEVEL 8.9 MG/DL (8.8-10.2); CARBON DIOXIDE LEVEL 27 MEQ/L (21-32); CHLORIDE LEVEL 104 MEQ/L (98-107); CHOLESTEROL LEVEL 162 MG/DL (<200); CHOLESTEROL RISK RATIO 1.883 (<5); CREATININE FOR GFR 0.83 MG/DL (0.70-1.30); GLOMERULAR FILTRATION RATE > 60.0 (>49); GLUCOSE, FASTING 101 MG/DL (70-100); HDL CHOLESTEROL 86 MG/DL (>40); LDL CHOLESTEROL 63 MG/DL (<100); NON-HDL-C 76 MG/DL; POTASSIUM SERUM 4.1 MEQ/L (3.5-5.1); SODIUM LEVEL 138 MEQ/L (136-145); THYROID STIMULATING HORMONE 0.992 uIU/ML (0.358-3.740); TRIGLYCERIDES LEVEL 67 MG/DL (<150)
[2019-09-29 08:37] LABS: ERYTHROCYTE SEDIMENTATION RATE 3 mm/hr (0-20)
--- NOTE | 2019-09-29 17:20 | ECGEPIP ---
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
== END ==
LOC: M LAB 06:37
PROVIDERS: ATTEND Family Medicine
DX: Z01.818 Encounter for other preprocedural examination (principal); M25.551 Pain in right hip; I10 Essential (primary) hypertension; J44.9 Chronic obstructive pulmonary disease, unspecified

== ENCOUNTER 2019-11-08 08:03 | Outpatient (RCR) | payer OTHER ==
[~2019-11-08 08:03] MED LIST changes: +BISO5TAB14 PO; -BISO5TAB9 PO; +PERC5TAB12 PO; +XARE10TA PO
== END 2019-11-12 ==
LOC: M PT 08:03
PROVIDERS: ATTEND Orthopaedic Surgery
DX: Z47.89 Encounter for other orthopedic aftercare (principal)

== ENCOUNTER 2019-12-02 09:28 | Outpatient (RCR) | payer OTHER | END 2019-12-11 | LOC: M PT 09:28 | PROVIDERS: ATTEND Orthopaedic Surgery | DX: Z47.89 Encounter for other orthopedic aftercare (principal); Z96.641 Presence of right artificial hip joint ==

== ENCOUNTER 2020-04-13 07:30 | Emergency (ER) | payer MEDICARE, OTHER ==
[~2020-04-13] VITALS: Ht 177.8 cm; Wt 76.0 kg
[~2020-04-13 07:30] MED LIST changes: -LISI-1046 PO; +LISI2.5T2 PO
--- NOTE | 2020-04-13 08:45 | REP ---
Clinical: Hemoptysis. High risk factors. Technique: Axial noncontrast images from the thoracic inlet to the upper abdomen with coronal and sagittal re-formations. Findings: The bilateral lung rich are relatively well aerated with minimal primarily by apical/posterior upper lobe scarring. No consolidation, significant nodule, or mass lesion. No pleural effusion. No pneumothorax. Tracheobronchial tree is patent and without bronchiectasis. No axillary, hilar, or mediastinal adenopathy. Atherosclerotic changes to the thoracic aorta and coronary arteries again noted and unchanged. No cardiomegaly or pericardial effusion. Surrounding musculoskeletal structures are intact. Limited upper abdomen demonstrates normal bilateral adrenal glands. Impression: Minimal stable scarring primarily involving the upper lobes. No acute mediastinal or pleuroparenchymal process appreciated. Electronically Signed by Valentin Deal MD 04/13/2020 08:36 A
[2020-04-13 09:18] VITALS: BP 186/78
== END 2020-04-13 09:19 | disposition home or self-care (01) ==
LOC: M ED 07:30
DX: J02.9 Acute pharyngitis, unspecified (principal); R04.2 Hemoptysis; J30.9 Allergic rhinitis, unspecified; I10 Essential (primary) hypertension; I25.10 Atherosclerotic heart disease of native coronary artery without angina pectoris; Z98.61 Coronary angioplasty status; J44.9 Chronic obstructive pulmonary disease, unspecified; Z79.01 Long term (current) use of anticoagulants

== ENCOUNTER → 2020-05-11 | Outpatient (CLI) | payer MEDICARE ==
[~2020-05-11] MED LIST changes: +AMLO1TAB24 PO; -AMLO5TAB6 PO; -ASPI81TA85 PO; +ASPI81TA86 PO
[2020-06-10 13:49] LABS: HEMATOCRIT 42.5 % (42.0-52.0); HEMOGLOBIN 14.1 g/dl (13.5-17.5); MEAN CORPUSCULAR HEMOGLOBIN 33.7 pg (27.0-33.0); MEAN CORPUSCULAR HGB CONC 33.2 g/dl (32.0-36.5); MEAN CORPUSCULAR VOLUME 101.7 fl (80.0-96.0); PLATELET COUNT, AUTOMATED 228 10^3/uL (150-450); RED BLOOD COUNT 4.18 10^6/uL (4.30-6.10); WHITE BLOOD COUNT 6.1 10^3/uL (4.0-10.0)
[2020-08-04 11:57] LABS: ALBUMIN 4.1 GM/DL (3.2-5.2); ALT/SGPT 40 U/L (12-78); BILIRUBIN,TOTAL 0.8 MG/DL (0.2-1.0); BLOOD UREA NITROGEN 14 MG/DL (7-18); CALCIUM LEVEL 9.2 MG/DL (8.8-10.2); CARBON DIOXIDE LEVEL 32 MEQ/L (21-32); CHLORIDE LEVEL 103 MEQ/L (98-107); CHOLESTEROL LEVEL 187 MG/DL (<200); CHOLESTEROL RISK RATIO 2.337 (<5); CREATININE FOR GFR 0.84 MG/DL (0.70-1.30); GLOMERULAR FILTRATION RATE > 60.0 (>49); GLUCOSE, FASTING 87 MG/DL (70-100); HDL CHOLESTEROL 80 MG/DL (>40); HEMOGLOBIN A1c 4.9 %; LDL CHOLESTEROL 90 MG/DL (<100); NON-HDL-C 107 MG/DL; POTASSIUM SERUM 3.9 MEQ/L (3.5-5.1); SODIUM LEVEL 138 MEQ/L (136-145); TESTOSTERONE 522 NG/DL (241-827); TOTAL 25(OH) VITAMIN D 49.6 NG/ML (30.0-100.0); TOTAL PROTEIN 7.2 GM/DL (6.4-8.2); TRIGLYCERIDES LEVEL 87 MG/DL (<150)
== END ==
LOC: M LAB 06:43
PROVIDERS: ATTEND Family Medicine
DX: D64.9 Anemia, unspecified (principal); R53.83 Other fatigue; E03.9 Hypothyroidism, unspecified; Z12.5 Encounter for screening for malignant neoplasm of prostate; Z79.899 Other long term (current) drug therapy
CPT/HCPCS: 36415; 80053; 80061; 82306; 83036; 84403; 84443; 85027; G0103

== ENCOUNTER → 2021-02-13 | Outpatient (CLI) | payer MEDICARE ==
[2021-02-13 06:50] LABS: HEMATOCRIT 42.1 % (42.0-52.0); HEMOGLOBIN 13.5 g/dl (13.5-17.5); MEAN CORPUSCULAR HEMOGLOBIN 32.8 pg (27.0-33.0); MEAN CORPUSCULAR HGB CONC 32.1 g/dl (32.0-36.5); MEAN CORPUSCULAR VOLUME 102.2 fl (80.0-96.0); PLATELET COUNT, AUTOMATED 268 10^3/uL (150-450); RED BLOOD COUNT 4.12 10^6/uL (4.30-6.10); WHITE BLOOD COUNT 6.8 10^3/uL (4.0-10.0)
[2021-02-13 07:14] LABS: HEMOGLOBIN A1c 4.8 %
[2021-02-13 07:30] LABS: ALBUMIN 3.7 GM/DL (3.2-5.2); ALT/SGPT 31 U/L (12-78); BILIRUBIN,TOTAL 0.4 MG/DL (0.2-1.0); BLOOD UREA NITROGEN 18 MG/DL (7-18); CALCIUM LEVEL 9.4 MG/DL (8.8-10.2); CARBON DIOXIDE LEVEL 30 MEQ/L (21-32); CHLORIDE LEVEL 107 MEQ/L (98-107); CHOLESTEROL LEVEL 186 MG/DL (<200); CHOLESTEROL RISK RATIO 2.415 (<5); CREATININE FOR GFR 0.88 MG/DL (0.70-1.30); GLOMERULAR FILTRATION RATE > 60.0 (>49); GLUCOSE, FASTING 103 MG/DL (70-100); HDL CHOLESTEROL 77 MG/DL (>40); LDL CHOLESTEROL 91 MG/DL (<100); NON-HDL-C 109 MG/DL; POTASSIUM SERUM 4.5 MEQ/L (3.5-5.1); PROSTATIC SPECIFIC AG MONITOR 1.16 NG/ML (< 4.00); SODIUM LEVEL 142 MEQ/L (136-145); TOTAL PROTEIN 6.8 GM/DL (6.4-8.2); TRIGLYCERIDES LEVEL 92 MG/DL (<150)
[2021-02-13 10:56] LABS: TESTOSTERONE 551 NG/DL (241-827)
== END ==
LOC: M LAB 06:23
PROVIDERS: ATTEND Family Medicine
DX: D64.9 Anemia, unspecified (principal); R53.83 Other fatigue; E03.9 Hypothyroidism, unspecified; Z79.899 Other long term (current) drug therapy

== ENCOUNTER → 2021-05-09 | Outpatient (CLI) | payer MEDICARE ==
[~2021-05-09] MED LIST changes: +ECOT81TA5 PO; +PANT40TA29 PO
== END ==
LOC: M LABSMTC 09:53
PROVIDERS: ATTEND Anesthesiology
DX: Z20.828 Contact with and (suspected) exposure to other viral communicable diseases (principal); Z11.59 Encounter for screening for other viral diseases

== ENCOUNTER 2021-05-14 08:39 | Day surgery (SDC) | payer MEDICARE ==
[~2021-05-14] VITALS: Ht 180.3 cm; Wt 75.3 kg
[~2021-05-14 08:39] MED LIST changes: +NS 1,000 ML IV ONE
[2021-05-14] MEDS ORDERED: LIDOCAINE 2% 100MG/5ML SDV (FOR ANES.) As Ordered ONE (09:50)
[2021-05-14] MEDS ORDERED: fentaNYL 100 MCG/2 ML INJECTION (J3010) As Ordered ONE (09:50)
[2021-05-14] MEDS ORDERED: propofoL 200 MG/20 ML VIAL As Ordered ONE ×2 (09:50→10:07)
--- NOTE | 2021-05-14 10:17 | ROOR ---
Patient Name: Ashwin Villa Procedure Date: 05/14/2021 9:58 AM Date of : 1960 Age: 60 Room: [facility] Gender: Male Note Status: Finalized Procedure: Upper Endoscopy + Biopsies Indications: Heartburn, Exclusion of Senior's esophagus Providers: Dereje Dorman MD Referring MD: SHAVON DANIEL MD Requesting Provider: Medicines: Monitored Anesthesia Care Complications: No immediate complications. Procedure: Pre-Anesthesia Assessment: - The heart rate, respiratory rate, oxygen saturations, blood pressure, adequacy of pulmonary ventilation, and response to care were monitored throughout the procedure. The Endoscope was introduced through the mouth, and advanced to the second part of duodenum. The upper GI endoscopy was accomplished without difficulty. The patient tolerated the procedure well. Findings: The Z-line was variable and was found 45 cm from the incisors. Multiple biopsies were obtained with cold forceps for evaluation to rule out Senior's Esophagus randomly at the gastroesophageal junction. No other significant abnormalities were identified in a careful examination of the stomach. The exam of the duodenum was otherwise normal. Impression: - Z-line variable, 45 cm from the incisors. - Multiple biopsies were obtained at the gastroesophageal junction. - The examination was otherwise normal. Recommendation: - Patient has a contact number available for emergencies. The signs and symptoms of potential delayed complications were discussed with the patient. Return to normal activities tomorrow. Written discharge instructions were provided to the patient. - High fiber diet. - Discharge patient to home. - Follow an antireflux regimen. - Continue present medications. - Await pathology results. - Telephone GI clinic for pathology results in 1 week. - Return to referring physician. - The findings and recommendations were discussed with the patient's family. Procedure Code(s): --- Professional --- 79211, Esophagogastroduodenoscopy, flexible, transoral; with biopsy, single or multiple Diagnosis Code(s): --- Professional --- K22.8, Other specified diseases of esophagus R12, Heartburn CPT copyright 2019 [employer]. All rights reserved. The codes documented in this report are preliminary and upon auditing coder review may be revised to meet current compliance requirements. Dereje Dorman MD Dereje Dorman MD 05/14/2021 10:17:19 AM Electronically signed by Dereje Dorman MD Number of Addenda: 0 Note Initiated On: 05/14/2021 9:58 AM Estimated Blood Loss: Estimated blood loss: none.
[2021-05-14 10:35] VITALS: BP 160/76
== END 2021-05-14 10:37 | disposition home or self-care (01) ==
LOC: M OPP 08:39
PROVIDERS: ATTEND Internal Medicine Gastroenterology
DX: R12 Heartburn (principal); D13.0 Benign neoplasm of esophagus; K22.8 Other specified diseases of esophagus; I25.10 Atherosclerotic heart disease of native coronary artery without angina pectoris; I10 Essential (primary) hypertension; E78.5 Hyperlipidemia, unspecified; M19.90 Unspecified osteoarthritis, unspecified site; J44.9 Chronic obstructive pulmonary disease, unspecified; F17.210 Nicotine dependence, cigarettes, uncomplicated; Z86.73 Personal history of transient ischemic attack (TIA), and cerebral infarction without residual deficits; Z79.51 Long term (current) use of inhaled steroids; Z79.82 Long term (current) use of aspirin; Z79.899 Other long term (current) drug therapy; Z95.5 Presence of coronary angioplasty implant and graft
CPT/HCPCS: 43239; 88305; J3010

== ENCOUNTER → 2021-05-15 | Outpatient (CLI) | payer MEDICARE ==
[~2021-05-15] MED LIST changes: -LISI2.5T2 PO; +LISI2.5T9 PO; +LOSA100T45 PO; -LOSA100T50 PO; -NS 1,000 ML IV ONE
== END ==
LOC: M RAD 07:29
PROVIDERS: ATTEND Physician Assistant
DX: F17.210 Nicotine dependence, cigarettes, uncomplicated (principal); Z12.2 Encounter for screening for malignant neoplasm of respiratory organs

== ENCOUNTER → 2022-04-22 | Outpatient (CLI) | payer MEDICARE ==
[2022-04-22 06:37] LABS: HEMATOCRIT 44.8 % (42.0-52.0); MEAN CORPUSCULAR HGB CONC 33.5 g/dl (32.0-36.5); MEAN CORPUSCULAR VOLUME 98.5 fl (80.0-96.0); PLATELET COUNT, AUTOMATED 250 10^3/uL (150-450); RED BLOOD COUNT 4.55 10^6/uL (4.30-6.10); WHITE BLOOD COUNT 6.7 10^3/uL (4.0-10.0)
[2022-04-22 06:52] LABS: HEMOGLOBIN A1c 4.9 %
[2022-04-22 07:13] LABS: ALBUMIN 3.7 GM/DL (3.2-5.2); ALT/SGPT 33 U/L (12-78); BILIRUBIN,TOTAL 0.4 MG/DL (0.2-1.0); BLOOD UREA NITROGEN 21 MG/DL (7-18); CALCIUM LEVEL 8.9 MG/DL (8.8-10.2); CARBON DIOXIDE LEVEL 30 MEQ/L (21-32); CHLORIDE LEVEL 105 MEQ/L (98-107); CHOLESTEROL LEVEL 181 MG/DL (<200); CHOLESTEROL RISK RATIO 2.234 (<5); CREATININE FOR GFR 0.96 MG/DL (0.70-1.30); GLOMERULAR FILTRATION RATE > 60.0 (>49); GLUCOSE, FASTING 101 MG/DL (70-100); HDL CHOLESTEROL 81 MG/DL (>40); LDL CHOLESTEROL 86 MG/DL (<100); NON-HDL-C 100 MG/DL; POTASSIUM SERUM 4.4 MEQ/L (3.5-5.1); SODIUM LEVEL 138 MEQ/L (136-145); TOTAL PROTEIN 6.7 GM/DL (6.4-8.2); TRIGLYCERIDES LEVEL 70 MG/DL (<150)
[2022-04-22 12:56] LABS: TOTAL 25(OH) VITAMIN D 27.3 NG/ML (30.0-100.0)
[2022-04-22 12:57] LABS: TESTOSTERONE 499 NG/DL (241-827)
== END ==
LOC: M LAB 06:06
PROVIDERS: ATTEND Family Medicine
DX: I10 Essential (primary) hypertension (principal); E03.9 Hypothyroidism, unspecified; R53.83 Other fatigue; Z79.899 Other long term (current) drug therapy
CPT/HCPCS: 36415; 80053; 80061; 82306; 83036; 84403; 84443; 85027; G0103

== ENCOUNTER → 2022-05-27 | Outpatient (CLI) | payer MEDICARE | LOC: M RAD 06:12 | PROVIDERS: ATTEND Physician Assistant | DX: Z12.2 Encounter for screening for malignant neoplasm of respiratory organs (principal); F17.218 Nicotine dependence, cigarettes, with other nicotine-induced disorders ==

== ENCOUNTER → 2023-06-13 | Outpatient (CLI) | payer MEDICARE ==
[~2023-06-13] MED LIST changes: +ATOR40TA75 PO; +CLOP75TA99 PO; +DICY-61 PO; -DICY10CA13 PO; +FERR325T3 PO; +FLON1SPR NARES; +FOLI1TAB11 PO; -LOSA100T45 PO; +LOSA100T46 PO; +NICO14PA TD; -PLAV1TAB2 PO; +SILD100T PO; +THIA100TA PO; -VENTAER IN; +VENTAER INH; +VITMTA PO
== END ==
LOC: M RAD 06:26
PROVIDERS: ATTEND Physician Assistant
DX: Z12.2 Encounter for screening for malignant neoplasm of respiratory organs (principal); F17.218 Nicotine dependence, cigarettes, with other nicotine-induced disorders

== ENCOUNTER → 2023-07-17 | Outpatient (CLI) | payer MEDICARE | LOC: M CARPUL 08:01 | PROVIDERS: ATTEND Nurse Practitioner Family | DX: I77.810 Thoracic aortic ectasia (principal); I08.3 Combined rheumatic disorders of mitral, aortic and tricuspid valves ==

== ENCOUNTER → 2023-08-11 | Outpatient (CLI) | payer MEDICARE ==
[2023-08-11 07:02] LABS: HEMATOCRIT 46.3 % (42.0-52.0); MEAN CORPUSCULAR HEMOGLOBIN 33.7 pg (27.0-33.0); MEAN CORPUSCULAR HGB CONC 34.6 g/dl (32.0-36.5); MEAN CORPUSCULAR VOLUME 97.5 fl (80.0-96.0); PLATELET COUNT, AUTOMATED 374 10^3/uL (150-450); RED BLOOD COUNT 4.75 10^6/uL (4.30-6.10); WHITE BLOOD COUNT 9.1 10^3/uL (4.0-10.0)
[2023-08-11 07:24] LABS: ALBUMIN 3.3 G/DL (3.2-5.2); ALKALINE PHOSPHATASE 71 U/L (46-116); ALT/SGPT 85 U/L (7.0-40); AST/SGOT 42 U/L (<34); BILIRUBIN,TOTAL 0.6 MG/DL (0.3-1.2); BLOOD UREA NITROGEN 12 MG/DL (9-23); CALCIUM LEVEL 9.1 MG/DL (8.3-10.6); CARBON DIOXIDE LEVEL 30 MMOL/L (20-31); CHLORIDE LEVEL 103 MMOL/L (98-107); CHOLESTEROL LEVEL 167 MG/DL (<200); CHOLESTEROL RISK RATIO 3.06 (<5); CREATININE FOR GFR 0.89 MG/DL (0.70-1.30); GLOMERULAR FILTRATION RATE > 60.0 (>49); GLUCOSE, FASTING 103 MG/DL (74-106); HDL CHOLESTEROL 54.5 MG/DL (>40); LDL CHOLESTEROL 94.5 MG/DL (<100); NON-HDL-C 112.5 MG/DL; POTASSIUM SERUM 3.8 MMOL/L (3.5-5.1); PROSTATIC SPECIFIC AG MONITOR 0.98 NG/ML (< 4.00); SODIUM LEVEL 141 MMOL/L (136-145); TOTAL PROTEIN 5.9 G/DL (5.7-8.2); TRIGLYCERIDES LEVEL 90 MG/DL (<150)
[2023-08-11 07:28] LABS: THYROID STIMULATING HORMONE 1.898 uIU/ML (0.55-4.78)
[2023-08-11 07:29] LABS: TESTOSTERONE 626 NG/DL (241-827)
[2023-08-11 09:14] LABS: HEMOGLOBIN A1c 4.7 % (4.0-6.0)
== END ==
LOC: M LAB 06:31
PROVIDERS: ATTEND Family Medicine
DX: I10 Essential (primary) hypertension (principal); R53.83 Other fatigue; E03.9 Hypothyroidism, unspecified

== ENCOUNTER → 2024-04-20 | Outpatient (REF) | payer MEDICARE | LOC: M LAB REF 17:07 | PROVIDERS: ATTEND Physician Assistant | DX: J31.2 Chronic pharyngitis (principal) ==

== ENCOUNTER → 2024-04-26 | Outpatient (CLI) | payer MEDICARE ==
[2024-04-26 07:21] LABS: HEMATOCRIT 39.6 % (42.0-52.0); HEMOGLOBIN 13.2 g/dl (13.5-17.5); MEAN CORPUSCULAR HEMOGLOBIN 33.7 pg (27.0-33.0); MEAN CORPUSCULAR HGB CONC 33.3 g/dl (32.0-36.5); PLATELET COUNT, AUTOMATED 192 10^3/uL (150-450); RED BLOOD COUNT 3.92 10^6/uL (4.30-6.10); WHITE BLOOD COUNT 5.6 10^3/uL (4.0-10.0)
[2024-04-26 07:58] LABS: PROSTATIC SPECIFIC AG MONITOR 0.45 NG/ML (< 4.00)
[2024-04-26 08:02] LABS: ALBUMIN 3.6 G/DL (3.2-5.2); ALKALINE PHOSPHATASE 80 U/L (46-116); ALT/SGPT 33 U/L (7.0-40); AST/SGOT 23 U/L (<34); BILIRUBIN,TOTAL 0.4 MG/DL (0.3-1.2); BLOOD UREA NITROGEN 17 MG/DL (9-23); CALCIUM LEVEL 8.8 MG/DL (8.3-10.6); CARBON DIOXIDE LEVEL 30 MMOL/L (20-31); CHLORIDE LEVEL 107 MMOL/L (98-107); CHOLESTEROL LEVEL 160 MG/DL (<200); CHOLESTEROL RISK RATIO 2.23 (<5); CREATININE FOR GFR 0.75 MG/DL (0.70-1.30); GLOMERULAR FILTRATION RATE > 60.0 (>49); GLUCOSE, FASTING 90 MG/DL (74-106); HDL CHOLESTEROL 71.7 MG/DL (>40); LDL CHOLESTEROL 77.3 MG/DL (<100); NON-HDL-C 88.3 MG/DL; POTASSIUM SERUM 4.6 MMOL/L (3.5-5.1); SODIUM LEVEL 140 MMOL/L (136-145); THYROID STIMULATING HORMONE 1.533 uIU/ML (0.55-4.78); TRIGLYCERIDES LEVEL 55 MG/DL (<150)
[2024-04-26 08:03] LABS: TESTOSTERONE 649 NG/DL (241-827)
== END ==
LOC: M LAB 06:24
PROVIDERS: ATTEND Family Medicine
DX: R53.83 Other fatigue (principal); I10 Essential (primary) hypertension; E03.9 Hypothyroidism, unspecified; Z79.899 Other long term (current) drug therapy

== ENCOUNTER → 2024-07-12 | Outpatient (CLI) | payer MEDICARE | LOC: M RAD 07:19 | PROVIDERS: ATTEND Physician Assistant | DX: Z12.2 Encounter for screening for malignant neoplasm of respiratory organs (principal); F17.218 Nicotine dependence, cigarettes, with other nicotine-induced disorders ==

== ENCOUNTER 2024-08-18 10:04 | Day surgery (SDC) | payer MEDICARE ==
[~2024-08-18] VITALS: Ht 180.3 cm; Wt 77.1 kg
[~2024-08-18 10:04] MED LIST changes: +ATOR80TA59 PO; +AZEL1SPR3; +FLUT1BLS8; +LISI5TAB11 PO; +MULTTAB61 PO; +NS 250 ML IV ONE
[2024-08-18] MEDS ORDERED: propofoL 500 MG/50 ML VIAL As Ordered ONE (10:47)
[2024-08-18] MEDS ORDERED: GLYCOPYRROLATE INJ 0.2 MG/ML 2 ML VIAL As Ordered ONE (11:02)
[2024-08-18] MEDS ORDERED: LIDOCAINE 2% 100MG/5ML SDV (FOR ANES.) As Ordered ONE (11:02)
[2024-08-18] MEDS ORDERED: propofoL 200 MG/20 ML VIAL As Ordered ONE (11:43)
[2024-08-18 11:53] VITALS: TEMP 98.6
[2024-08-18 12:18] VITALS: BP 121/73; O2SAT 97
== END 2024-08-18 12:24 | disposition home or self-care (01) ==
LOC: M OPP 10:04
PROVIDERS: ATTEND Internal Medicine Gastroenterology
DX: Z12.11 Encounter for screening for malignant neoplasm of colon (principal); Z86.0100 Personal history of colon polyps, unspecified; K64.0 First degree hemorrhoids; R12 Heartburn; I25.10 Atherosclerotic heart disease of native coronary artery without angina pectoris; I10 Essential (primary) hypertension; E78.5 Hyperlipidemia, unspecified; K58.9 Irritable bowel syndrome, unspecified; D50.9 Iron deficiency anemia, unspecified; M19.90 Unspecified osteoarthritis, unspecified site; J44.9 Chronic obstructive pulmonary disease, unspecified; F17.210 Nicotine dependence, cigarettes, uncomplicated; Z79.51 Long term (current) use of inhaled steroids; Z79.82 Long term (current) use of aspirin; Z79.899 Other long term (current) drug therapy
CPT/HCPCS: 43239; 88305; G0105; J1596

== ENCOUNTER 2025-06-29 15:18 | Emergency (ER) | payer MEDICARE ==
[~2025-06-29] VITALS: Ht 180.3 cm; Wt 74.1 kg
[~2025-06-29 15:18] MED LIST changes: -ADV500INH INH; +ADVA1AER10 INH; -NS 250 ML IV ONE
[2025-06-29 15:54] LABS: BASO # 0.0 10^3/uL (0.0-0.2); BASO % 0.3 % (0.0-1.0); EOS # 0.2 10^3/uL (0.0-0.5); EOS % 2.4 % (0.0-3.0); LYMPH # 2.1 10^3/uL (1.5-5.0); LYMPH % 34.1 % (24.0-44.0); MONO # 0.7 10^3/uL (0.0-0.8); MONO % 11.4 % (2.0-8.0); NEUTROPHILS # 3.2 10^3/uL (1.5-8.5); NEUTROPHILS % 51.2 % (36.0-66.0); PLATELET COUNT, AUTOMATED 261 10^3/uL (150-450)
[2025-06-29] MEDS: FAMOTIDINE 20 MG/2 ML VIAL IVP ONE (16:14)
[2025-06-29] MEDS: EPINEPHrine INJ 1 MG/ML 1ML AMP IM STA (16:14)
[2025-06-29 16:20] LABS: CK-MB VALUE MASS 1.8 NG/ML (<3.6); CPK CREATINE PHOSPHOKINASE 55.0 U/L (46-171); MB/CK RELATIVE INDEX 3.27 (< OR =4)
[2025-06-29 16:24] LABS: FREE T4 1.55 NG/DL (0.89-1.76)
[2025-06-29 16:35] LABS: ALT/SGPT 36.0 U/L (7.0-40); AST/SGOT 39.0 U/L (<34); CALCIUM LEVEL 8.5 MG/DL (8.3-10.6); CARBON DIOXIDE LEVEL 23.0 MMOL/L (20-31); CHLORIDE LEVEL 102.0 MMOL/L (98-107); CREATININE FOR GFR 1.01 MG/DL (0.70-1.30); GLOMERULAR FILTRATION RATE 82.0 (>49); POTASSIUM SERUM 3.8 MMOL/L (3.5-5.1); SODIUM LEVEL 132.0 MMOL/L (136-145)
[2025-06-29] MEDS: C1 ESTERASE INHIBITOR IV ONE (16:36)
[2025-06-29] MEDS ORDERED: ISOVUE-370 76% 100 ML VIAL As Ordered ONE (16:52)
[2025-06-29 19:12] LABS: CK-MB VALUE MASS 1.7 NG/ML (<3.6)
[2025-06-29 19:13] LABS: CPK CREATINE PHOSPHOKINASE 51.0 U/L (46-171); MB/CK RELATIVE INDEX 3.33 (< OR =4)
[2025-06-29 21:30] VITALS: O2SAT 98
[2025-06-29 21:45] VITALS: BP 124/90; TEMP 97.6
== END 2025-06-29 21:51 | disposition home or self-care (01) ==
LOC: EDBD 15:18 → M ED 15:18
DX: T78.3XXA Angioneurotic edema, initial encounter (principal); T36.0X5A Adverse effect of penicillins, initial encounter; I44.0 Atrioventricular block, first degree; I44.4 Left anterior fascicular block; J44.9 Chronic obstructive pulmonary disease, unspecified; J43.9 Emphysema, unspecified; M47.814 Spondylosis without myelopathy or radiculopathy, thoracic region; I70.0 Atherosclerosis of aorta; I25.84 Coronary atherosclerosis due to calcified coronary lesion; R91.1 Solitary pulmonary nodule; S22.41XD Multiple fractures of ribs, right side, subsequent encounter for fracture with routine healing; F10.10 Alcohol abuse, uncomplicated; F17.200 Nicotine dependence, unspecified, uncomplicated; Z79.82 Long term (current) use of aspirin; Z79.52 Long term (current) use of systemic steroids; Z79.899 Other long term (current) drug therapy; Z86.79 Personal history of other diseases of the circulatory system
CPT/HCPCS: 70491; 71045; 71275; 80047; 80048; 80076; 82550; 82553; 83690; 84439; 84443; 84484; 85025; 85379; 93005; 93041; 94760; 96372; 96374; 96375; 99285; J0166; J0597; J1308; Q9967

== ENCOUNTER 2025-07-20 08:43 | Day surgery (SDC) | payer MEDICARE ==
[~2025-07-20] VITALS: Ht 180.3 cm; Wt 76.2 kg
[2025-07-20] MEDS ORDERED: LIDOCAINE 2% 100 MG/5 ML SDV (FOR ANES.) As Ordered ONE (10:26)
[2025-07-20 10:30] VITALS: TEMP 97.7
[2025-07-20 10:43] VITALS: BP 152/80; O2SAT 97
== END 2025-07-20 10:49 | disposition home or self-care (01) ==
LOC: M OPP 08:43
PROVIDERS: ATTEND Internal Medicine Gastroenterology
DX: R93.3 Abnormal findings on diagnostic imaging of other parts of digestive tract (principal); Z95.5 Presence of coronary angioplasty implant and graft; Z88.8 Allergy status to other drugs, medicaments and biological substances; Z79.82 Long term (current) use of aspirin; Z79.51 Long term (current) use of inhaled steroids; Z79.899 Other long term (current) drug therapy; J44.9 Chronic obstructive pulmonary disease, unspecified; Z86.73 Personal history of transient ischemic attack (TIA), and cerebral infarction without residual deficits; F17.210 Nicotine dependence, cigarettes, uncomplicated